=== PATIENT | female | born 1955 | race African-American/Black ===

== ENCOUNTER 2018-07-15 11:43 | Emergency (ER) | payer OTHER, SELFPAY ==
[2018-07-15] MEDS ORDERED: Fluorescein Opthalmic Strip ONE (12:02)
[2018-07-15] MEDS ORDERED: Bacitracin Zinc 1 Packet ONE (17:05)
== END 2018-07-15 12:38 | disposition home or self-care (01) ==
LOC: BURERS 11:43
DX: H15.002 Unspecified scleritis, left eye (principal); E11.9 Type 2 diabetes mellitus without complications; E78.5 Hyperlipidemia, unspecified; K21.9 Gastro-esophageal reflux disease without esophagitis; Z79.51 Long term (current) use of inhaled steroids; Z79.899 Other long term (current) drug therapy
CPT/HCPCS: 99283